=== PATIENT | male | born 1945 | race Caucasian/White ===

== ENCOUNTER 2024-09-27 11:10 | Outpatient (AMB) | payer MEDICARE, BC, SELFPAY ==
--- NOTE | 2024-09-27 11:21 | ORTHONT_ITS ---
Vital signs 09/27/24 11:22 Height 1.8 m Height Method Stated Weight 97.749 kg Weight Measurement Method Standing Scale BMI 30.2 BP 117/72 Blood Pressure Source Automatic Cuff Blood Pressure Location Right Upper Arm Position Sitting Respiration 18 Pulse 59 L Pulse Source Monitor Temp 97.2 F Temp Source Temporal Artery Scan Pulse Oximetry (%) 95 Oxygen Delivery Method Room Air Med/Allergies Allergies & Medications Allergies No Known Allergies Allergy (Verified 09/27/24 11:23) Medication Reconciliation ropinirole 4 mg tablet,extended release 24 hr 4 mg PO QDAY 02/17/23 [History Confirmed 09/27/24] aspirin 81 mg tablet,delayed release 81 mg PO QDAY 09/27/24 [History Confirmed 09/27/24] clopidogrel 75 mg tablet 75 mg PO QDAY 09/27/24 [History Confirmed 09/27/24] metoprolol tartrate 37.5 mg tablet 37.5 mg PO QDAY 09/27/24 [History Confirmed 09/27/24] Exam Exam Patient is in no acute distress and is cooperative with the examination today. Breathing is nonlabored. Patient has a normal mood and affect. Bilateral extremities were evaluated and demonstrates sensation intact to light touch. Palpable pedal pulses are present. No significant edema is present. Bilateral hips were examined. The patient has no pain with log roll of the hips. Internal rotation to 30 degrees and external rotation to 30 degrees is painless. Negative FADIR. Left knee was examined today. The left knee is in reasonable alignment. Range of motion from 0-120 degrees. Knee is stable to varus and valgus as well as AP translation with <5mm. Patient has a negative McMurrays. There is no pain with patellofemoral compression and no crepitus noted. The knee is nontender to palpation. The right knee was also examined. The right knee is in [varus] alignment. Range of motion from [0-115] degrees. Knee is stable to varus and valgus as well as AP translation with <5mm. Patient has a [negative] McMurrays. There is [no] pain with patellofemoral compression and [no] crepitus noted. The knee is [tender] to palpation [medially]. I reviewed an MRI which demonstrates a posterior horn medial meniscus tear. It also appears to be cartilage loss. X-rays demonstrate severe joint space narrowing medially with complete obliteration of the medial and lateral joint space on both the right and left knee Assessment and Plan Problem List (1) Osteoarthritis of right knee: Status: Acute Plan: Patient is a 79-year-old male with significant right knee arthritis. Discussed nonoperative and operative options. We discussed total knee replacement is a reasonable option as he is failed conservative management. We discussed that he is at high risk for medical complications because of his heart history. He would like to proceed. The nature and purpose of the total knee replacement, alternative method(s) of treatment, the material risks involved, and the possibility of complications were fully explained to the patient. The patient does NOT have any of the following contraindications to TKA: - Active infection of the knee joint, OR - Active systemic bacteremia, OR - Active skin infection or open wound at surgical site, OR - Neuropathic arthritis, OR - Severe, rapidly progressive neurological disease, OR - Severe medical condition that makes risks of surgery outweigh the potential benefit The patient was told the most common risks and complications associated with a total knee replacement include, but are not limited to: blood clots in the leg, fatal pulmonary embolism, dislocation of the prosthesis, intraoperative and postoperative fractures of the femur or tibia, infection, failure of the prosthesis or grafting materials, complications from anesthesia, reactions to blood transfusions, postoperative leg length inequality, instability of the knee replacement, nerve damage or injury, vascular injury, delayed wound healing, infection, other injury or even . In addition, there are risks associated with anesthesia given during this operation. Also, the patient was told that after undergoing a total knee replacement there may still be persistent pain or disability. The patient was informed that the success of this operation in part depends upon the mechanical devices which are going to be implanted and that these devices can fail or malfunction, and may need to be repaired or replaced and there are no guarantees as to the longevity of this device or its parts and that it or its parts could fail prematurely. The patient was also notified that during the course of surgery, there may be a need to use bone graft from donors, and that any bone graft used will be carefully screened for communicable diseases, including AIDS, hepatitis, Jose Carlos-Creutzfeldt, or other diseases, but despite the screening procedures, there is a small chance that they could contract one of these diseases. Finally, the patient was asked to follow completely and fully with all advice and recommended treatments, and that recovery and ultimate outcome are affected by their compliance with recommended treatment. We discussed the risks, benefits and treatment alternatives, and the patient is interested in proceeding with surgery. We will try to set this up as expeditiously as possible. Advanced Care Planning Discussion Advance care planning discussed with:: patient Office Procedures GNS Level of Care Nursing/Assessment Patient Status: Established Patient Nursing Assessment/Reassesment: Medication Reconciliation, Update PMH in EMR and Vital Signs Coordination of Care: Complex Care and Chronic Disease 1-5, Education Complex Pt/Fam, Consent,records obtained, informed consent, 2-3 Insurance Autorizations needed, Results/Orders obtained and Staff clarify orders Established Patient Charge Established Patient Point Assignment: 115 Established Patient Point Charge: EP Level 3 (80-115) MA Intake Visit Data Collection New Patient or Established: Established Patient (seen at [facility] within 3 years) Reason for Visit:: F/U CARDIAC CLEARANCE Seen by Clinical Staff ONLY (RN/MA): No Verbal consent obtained for Telemed visit?: No Screw Machine Adjuster Automatic Required: No PCP or OBGYN visit in last 3 months: Yes Hx Now: No Do You Feel Safe at Home: Yes Authorities Contacted: N/A Questionairres Past Medical History Past Medical History Have you ever been diagnosed with any of the following: Neurological Problems Seizures: No Cardiology Problems Heart Murmur: Yes Congestive Heart Failure: No Valvular Heart Disease: No Respiratory Problems Chronic Obstructive Pulmonary Disease (COPD): Yes (mild) Asthma: Yes Sleep Apnea: Yes Smoking: No Smoking Exposure: No Stomache/Intestinal Problems Hepatitis: No Obesity: Yes Genital/Urinary Problems Renal Disease: No Kidney Stones: Yes Musculoskeletal Problems Arthritis: Yes Osteoporosis: Yes Head,Eye,Nose,Throat Problems Cataracts: Yes (BILATERAL) Deafness: Yes Endocrine Problems Diabetes Mellitus Type 1: No Diabetes Mellitus Type 2: No Psychologic Problems Depression: Yes Anxiety: Yes Other Problems Hospitalization: Yes (yrs ago for kidney stones) Shingles: No Blood Transfusions: No Blood Transfusion Reaction: No (NA) Anesthesia Reactions: No MRSA: No Human Immunodeficiency Virus (HIV): No Chicken Pox: Yes Measles: Yes Mumps: Yes Rubella (K[place]akh Measles): No Pertussis: No Clostridium Difficile: No Cancer: No Subjective Visit Visit for: follow up visit and knee Immunization / Flu Flu Vaccine in the Last 12 Months: No Flu Vaccine Exclusion Criteria: No Exclusion Criteria History of Present Illness Chief complaint: F/U CARDIAC CLEARANCE John is a pleasant 79-year-old male with severe right knee arthritis. His failed conservative treatment including injections and anti-inflammatories. He had a recent valve replacement. He obtained his cardiac clearance recently. He is on aspirin and Plavix. Personal History Occupation: RETIRED [employer] PMH: Blood thinners and BMI BMI Counceling provided: Yes Pain Pain level (0-10): 6 Pain location: inside (medial), outside (lateral), anterior and posterior Pain quality: sharp, dull and aching Pain timing: increases with activity Ambulatory data Ambulatory device: cane Treatments Improvement with previous injections: No Improvement with PT: No Improvement with NSAIDS: no Review of Systems Review of Systems: All systems negative unless otherwise noted in HPI.
[2024-09-27 11:22] VITALS: BP 117/72; PULSE 59; RESP 18; TEMP 36.2; O2SAT 95; BMI 30.2
== END 2024-09-27 11:48 | disposition home or self-care (01) ==
LOC: HODSRG 11:10
PROVIDERS: PCP Internal Medicine; Referring Provider Internal Medicine; Supervising Provider Orthopaedic Surgery Adult Reconstructive Orthopaedic Surgery; Visit Provider Orthopaedic Surgery Adult Reconstructive Orthopaedic Surgery
DX: M17.11 Unilateral primary osteoarthritis, right knee (principal); G47.30 Sleep apnea, unspecified
CPT/HCPCS: 99213; G0463

== ENCOUNTER → 2024-10-06 | Outpatient (CLI) | payer MEDICARE, BC, SELFPAY ==
--- NOTE | 2024-10-06 | XR_ITS ---
Examination: PA lateral chest 2 views Technique: Upright PA lateral chest 2 views Exam date and time: October 06, 2024, 1211 hrs. Comparison 05/28/2021 Indications: Coughing congestion beginning 3 months ago. Findings: Aortic valve replacement Mild accentuation basilar bronchovascular markings No pulmonary edema Normal heart size Impression: Mild basilar bronchitis pattern
== END | disposition home or self-care (01) ==
LOC: CDIM 11:42
PROVIDERS: PCP Internal Medicine
DX: R05.3 Chronic cough (principal)
CPT/HCPCS: 71046

== ENCOUNTER → 2024-10-19 | Outpatient (CLI) | payer MEDICARE, BC, SELFPAY ==
--- NOTE | 2024-10-19 16:30 | XR_ITS ---
Examination: CT right lower extremity, without contrast. 2-D sagittal reconstructions. 2-D coronal reconstructions. 3-D reconstructions. Date and time of exam:October 19, 2024 1630 hours INDICATIONS: Diagnosis unilateral right knee osteoarthritis right knee pain one year CTDI: vol (mGy):12.6 DLP: (mGycm):835 Technique: Multiple 1.25 mm axial sections of the right lower extremity without intravenous contrast have been obtained. 2-D sagittal and coronal reconstructions have been obtained. 3-D reconstructions have been obtained. Low dose protocols were performed. One or more of the following dose reduction techniques were used; automated exposure control, adjustment of the mA and/or KV according to patient size, use of iterative reconstruction technique. Findings: Severe osteopenia Mild narrowing right hip joint No right hip fracture or dislocation No avascular necrosis Severe narrowing medial joint space right knee Significant osteoarthritis lateral right patellofemoral joint No fractures No avascular necrosis Faint meniscus calcification IMPRESSION: Severe narrowing medial joint space right knee Significant osteoarthritis lateral right patellofemoral joint
== END | disposition home or self-care (01) ==
LOC: CCTX 16:19
PROVIDERS: PCP Internal Medicine; Referring Provider Orthopaedic Surgery Adult Reconstructive Orthopaedic Surgery; Visit Provider Orthopaedic Surgery Adult Reconstructive Orthopaedic Surgery
DX: M17.11 Unilateral primary osteoarthritis, right knee (principal); M25.861 Other specified joint disorders, right knee
CPT/HCPCS: 73700

== ENCOUNTER 2024-10-27 12:59 | Outpatient (AMB) | payer MEDICARE, BC, SELFPAY ==
[2024-10-27 13:12] VITALS: BP 116/70; PULSE 72; RESP 18; TEMP 36.5; O2SAT 95; BMI 30.1
--- NOTE | 2024-10-27 13:12 | PD.ORTHCLVIS ---
Vital signs 10/27/24 13:12 Height 1.8 m Height Method Stated Weight 97.636 kg Weight Measurement Method Standing Scale BMI 30.1 BP 116/70 Blood Pressure Source Automatic Cuff Blood Pressure Location Right Upper Arm Position Sitting Respiration 18 Pulse 72 Pulse Source Monitor Temp 97.7 F Temp Source Temporal Artery Scan Pulse Oximetry (%) 95 Oxygen Delivery Method Room Air Med/Allergies Allergies & Medications Allergies No Known Allergies Allergy (Verified 10/27/24 13:15) Medication Reconciliation ropinirole 4 mg tablet,extended release 24 hr 4 mg PO QDAY 02/17/23 [History Confirmed 10/27/24] aspirin 81 mg tablet,delayed release 81 mg PO QDAY 09/27/24 [History Confirmed 10/27/24] clopidogrel 75 mg tablet 75 mg PO QDAY 09/27/24 [History Confirmed 10/27/24] metoprolol tartrate 37.5 mg tablet 37.5 mg PO QDAY 09/27/24 [History Confirmed 10/27/24] Exam Exam Patient is in no acute distress and is cooperative with the examination today. Breathing is nonlabored. Patient has a normal mood and affect. Bilateral extremities were evaluated and demonstrates sensation intact to light touch. Palpable pedal pulses are present. No significant edema is present. Bilateral hips were examined. The patient has no pain with log roll of the hips. Internal rotation to 30 degrees and external rotation to 30 degrees is painless. Negative FADIR. Left knee was examined today. The left knee is in reasonable alignment. Range of motion from 0-120 degrees. Knee is stable to varus and valgus as well as AP translation with <5mm. Patient has a negative McMurrays. There is no pain with patellofemoral compression and no crepitus noted. The knee is nontender to palpation. The right knee was also examined. The right knee is in [varus] alignment. Range of motion from [0-115] degrees. Knee is stable to varus and valgus as well as AP translation with <5mm. Patient has a [negative] McMurrays. There is [no] pain with patellofemoral compression and [no] crepitus noted. The knee is [tender] to palpation [medially]. I reviewed an MRI which demonstrates a posterior horn medial meniscus tear. It also appears to be cartilage loss. X-rays demonstrate severe joint space narrowing medially with complete obliteration of the medial and lateral joint space on both the right and left knee Assessment and Plan Problem List (1) Osteoarthritis of right knee: Status: Acute Plan: Patient is a 79-year-old male with significant right knee arthritis. Discussed nonoperative and operative options. We discussed total knee replacement is a reasonable option as he is failed conservative management. We discussed that he is at high risk for medical complications because of his heart history. He would like to proceed. The nature and purpose of the total knee replacement, alternative method(s) of treatment, the material risks involved, and the possibility of complications were fully explained to the patient. The patient does NOT have any of the following contraindications to TKA: - Active infection of the knee joint, OR - Active systemic bacteremia, OR - Active skin infection or open wound at surgical site, OR - Neuropathic arthritis, OR - Severe, rapidly progressive neurological disease, OR - Severe medical condition that makes risks of surgery outweigh the potential benefit The patient was told the most common risks and complications associated with a total knee replacement include, but are not limited to: blood clots in the leg, fatal pulmonary embolism, dislocation of the prosthesis, intraoperative and postoperative fractures of the femur or tibia, infection, failure of the prosthesis or grafting materials, complications from anesthesia, reactions to blood transfusions, postoperative leg length inequality, instability of the knee replacement, nerve damage or injury, vascular injury, delayed wound healing, infection, other injury or even . In addition, there are risks associated with anesthesia given during this operation. Also, the patient was told that after undergoing a total knee replacement there may still be persistent pain or disability. The patient was informed that the success of this operation in part depends upon the mechanical devices which are going to be implanted and that these devices can fail or malfunction, and may need to be repaired or replaced and there are no guarantees as to the longevity of this device or its parts and that it or its parts could fail prematurely. The patient was also notified that during the course of surgery, there may be a need to use bone graft from donors, and that any bone graft used will be carefully screened for communicable diseases, including AIDS, hepatitis, Jose Carlos-Creutzfeldt, or other diseases, but despite the screening procedures, there is a small chance that they could contract one of these diseases. Finally, the patient was asked to follow completely and fully with all advice and recommended treatments, and that recovery and ultimate outcome are affected by their compliance with recommended treatment. We discussed the risks, benefits and treatment alternatives, and the patient is interested in proceeding with surgery. We will try to set this up as expeditiously as possible. Advanced Care Planning Discussion Advance care planning discussed with:: patient Office Procedures GNS Level of Care Nursing/Assessment Patient Status: Established Patient Nursing Assessment/Reassesment: Medication Reconciliation, Update PMH in EMR and Vital Signs Coordination of Care: Complex Care and Chronic Disease 1-5, Education Complex Pt/Fam, Consent,records obtained, informed consent, Lab and Imaging orders, Results/Orders obtained and Staff clarify orders Established Patient Charge Established Patient Point Assignment: 110 Established Patient Point Charge: EP Level 3 (80-115) MA Intake Visit Data Collection New Patient or Established: Established Patient (seen at [facility] within 3 years) Reason for Visit:: pre-op right tka Seen by Clinical Staff ONLY (RN/MA): No Verbal consent obtained for Telemed visit?: No Insurance Verification Clerk Required: No PCP or OBGYN visit in last 3 months: Yes Hx Now: No Do You Feel Safe at Home: Yes Authorities Contacted: N/A Questionairres Past Medical History Past Medical History Have you ever been diagnosed with any of the following: Neurological Problems Seizures: No Cardiology Problems Heart Murmur: Yes Congestive Heart Failure: No Valvular Heart Disease: No Respiratory Problems Chronic Obstructive Pulmonary Disease (COPD): Yes (mild) Asthma: Yes Sleep Apnea: Yes Smoking: No Smoking Exposure: No Stomache/Intestinal Problems Hepatitis: No Obesity: Yes Genital/Urinary Problems Renal Disease: No Kidney Stones: Yes Musculoskeletal Problems Arthritis: Yes Osteoporosis: Yes Head,Eye,Nose,Throat Problems Cataracts: Yes (BILATERAL) Deafness: Yes Endocrine Problems Diabetes Mellitus Type 1: No Diabetes Mellitus Type 2: No Psychologic Problems Depression: Yes Anxiety: Yes Other Problems Hospitalization: Yes (yrs ago for kidney stones) Shingles: No Blood Transfusions: No Blood Transfusion Reaction: No (NA) Anesthesia Reactions: No MRSA: No Human Immunodeficiency Virus (HIV): No Chicken Pox: Yes Measles: Yes Mumps: Yes Rubella ([place] Measles): No Pertussis: No Clostridium Difficile: No Cancer: No Subjective Visit Visit for: follow up visit Immunization / Flu Flu Vaccine in the Last 12 Months: No Flu Vaccine Exclusion Criteria: No Exclusion Criteria History of Present Illness Chief complaint: pre-op tka John is a pleasant 79-year-old male with severe right knee arthritis. His failed conservative treatment including injections and anti-inflammatories. He had a recent valve replacement. He obtained his cardiac clearance recently. He has discontinued his aspirin and plavix Personal History Occupation: retired [employer] PMH: BMI BMI Counceling provided: Yes Pain Pain level (0-10): 6 Pain duration: all day Pain location: inside (medial), outside (lateral), anterior and posterior Pain quality: sharp, dull and aching Pain timing: increases with activity Ambulatory data Ambulatory device: cane Treatments Improvement with previous injections: No Improvement with PT: No Improvement with NSAIDS: no Review of Systems Review of Systems: All systems negative unless otherwise noted in HPI.
== END 2024-10-27 13:30 | disposition home or self-care (01) ==
LOC: HODSRG 12:59
PROVIDERS: PCP Internal Medicine; Referring Provider Internal Medicine; Supervising Provider Orthopaedic Surgery Adult Reconstructive Orthopaedic Surgery; Visit Provider Orthopaedic Surgery Adult Reconstructive Orthopaedic Surgery
DX: M17.11 Unilateral primary osteoarthritis, right knee (principal); J44.9 Chronic obstructive pulmonary disease, unspecified; G47.30 Sleep apnea, unspecified
CPT/HCPCS: 99213; G0463

== ENCOUNTER 2024-11-07 06:45 | Day surgery (SDC) | payer MEDICARE, BC, SELFPAY ==
--- NOTE | 2024-11-04 06:30 | EKG_ITS ---
[facility] Test Date: 2024-11-04 Pat Name: KALA WALKER Department: Room: - Gender: Male Assistant Administrator: JONATHAN : 1945 Requested By: Jhonny Anderson Order Number: [id number] Reading MD: Jhonny Anderson Measurements Intervals [place] Rate: 58 P: 60 NE: 181 QRS: 18 QRSD: 89 T: 63 QT: 390 QTc: 384 Interpretive Statements SINUS BRADYCARDIA NONSPECIFIC T-WAVE ABNORMALITY No previous ECG available for comparison /[id number]/[email or web address]/[id number].pdf
[2024-11-04 07:13] VITALS: BMI 29.7
[2024-11-04 07:35] VITALS: BMI 29.7
[2024-11-04 08:54] LABS: Basophils # (Auto) 0.1 Thou/mm3 (0.0-0.2); Basophils % (Auto) 1 % (0-2.5); Eosinophils # (Auto) 0.2 Thou/mm3 (0.0-0.5); Eosinophils % (Auto) 4 % (0-10); Hematocrit 43.9 % (41.0-53.0); Immature Granulocytes % (Auto) 0 % (0-0); Immature Granulocytes Auto 0.02 Thou/mm3 (0.00-0.00); Lymphocytes # (Auto) 1.5 Thou/mm3 (1.0-4.8); Lymphocytes % (Auto) 27 % (10-50); Mean Corpuscular HGB Conc 34.2 g/dl (31.0-37.0); Mean Corpuscular Hemoglobin 30.9 pg (25.0-35.0); Mean Corpuscular Volume 90 fL (80-100); Monocytes # (Auto) 0.7 Thou/mm3 (0.0-0.8); Monocytes % (Auto) 13 % (0-12); Neutrophils # (Auto) 3.2 Thou/mm3 (1.8-7.7); Neutrophils % (Auto) 56 % (37-80); Nucleated Red Blood Cell % 0 /100 WBC (0); Platelet Count 168 Thou/mm3 (140-440); RDW Standard Deviation 46.5 fL (35.1-43.9); Red Blood Count 4.86 Miln/mm3 (4.50-5.90); White Blood Count 5.8 Thou/mm3 (3.8-10.6)
[2024-11-04 09:03] LABS: Prothrombin Time 10.9 Seconds (9.0-12.2)
[2024-11-04 09:25] LABS: Alanine Aminotransferase 10 U/L (10-49); Albumin, Serum 4.3 gm/dL (3.4-4.8); Albumin/Globulin Ratio 1.5 (1.2-2.2); Alkaline Phosphatase 116 U/L (46-116); Anion Gap 6 (7-16); Aspartate Amino Transferase 16 U/L (0-34); BUN/Creatinine Ratio 15 Ratio (12-20); Bilirubin,Total 0.6 mg/dL (0.3-1.2); Blood Urea Nitrogen 17 mg/dL (9-23); Carbon Dioxide 27.7 mMol/L (20.0-31.0); Chloride 108 mMol/L (98-107); Creatinine (Component) 1.1 mg/dL (0.6-1.3); Estimated Creatinine Clearance 63.5 mL/min (>60); Globulin 2.9 gm/dL (2.3-3.5); Glucose 86 mg/dL (74-106); Osmolality,Calculated 283 (275-295); Potassium 3.7 mMol/L (3.4-5.1); Sodium 142 mMol/L (136-145); Total Protein 7.2 gm/dL (5.7-8.2); eGFR > 60 See Note
--- NOTE | 2024-11-04 14:45 | SUR.PREOP ---
Cardiac records reviewed with Dr Anderson.
[2024-11-07] VITALS (15 sets, daily range): BP systolic 103–148; BP diastolic 59–89; PULSE 60–76; RESP 11–18; TEMP 36.1–36.8; O2SAT 91–97; BMI 29.5
[2024-11-07] MEDS: MELOXICAM 7.5 MG TABLET PO (08:53)
[2024-11-07] MEDS: ACETAMINOPHEN 325 MG TABLET 650 MG PO (08:53)
[2024-11-07] MEDS: PREGABALIN 75 MG CAPSULE PO (08:53)
[2024-11-07] MEDS: RINGERS LACTATED 1000 ML 1,000 ML 20 ML IV (08:56)
--- NOTE | 2024-11-07 11:12 | ESOP_ITS ---
Date of Procedure 11/07/24 Pre Op Diagnosis right knee osteoarthritis Post Op Diagnosis right knee osteoarthritis Procedure right totoal knee replacement Findings full thickness cartilage loss and osteophytes Procedure Description Indication: The patient is a 79 year old who has a long history of right knee pain. X-rays show degenerative arthritis involving the knee. Over the past several years the patient has had increasing pain, progressive limitation in function. He has failed conservative measures including activity modification, physical therapy, injections, anti-inflammatories, and assistive devices. After a lengthy discussion of the risks and benefits, the patient presents now for total knee replacement. The nature and purpose of the total knee replacement, alternative method(s) of treatment, the material risks involved, and the possibility of complications were fully explained to the patient. The patient was told the most common risks and complications associated with a total knee replacement include, but are not limited to blood clots in the leg, fatal pulmonary embolism, dislocation of the prosthesis, intraoperative and postoperative fractures of the femur or tibia, infection, failure of the prosthesis or grafting materials, complications from anesthesia, reactions to blood transfusions, postoperative leg length inequality, instability of the knee replacement, nerve damage or injury, vascular injury, delayed wound healing, infections, other injury or even . In addition, there are risks associated with anesthesia given during this operation, temporary or permanent numbness on the skin lateral to the incision can be a complication unique to total knee surgery, and kneeling can be painful after knee replacement surgery. Also, the patient was told that after undergoing a total knee replacement there may still be pain or disability. We discussed with the patient that we will be using a robot-assisted technology. We discussed that there is a possibility of converting to manual instrumentation. The patient was informed that the success of this operation in part depends upon the mechanical devices which are going to be implanted and that these devices can fail or malfunction, and may need to be repaired or replaced and there are no guarantees as to the longevity of this device or its part and that it or its parts could fail prematurely. Finally, the patient was asked to follow completely and fully with all advice and recommended treatments, and that recovery and ultimate outcome are affected by their compliance with recommended treatment. Surgical technique: Patient was marked and consented in the pre-operative area. The patient was brought to the operating room and placed on the operating table in a supine position. Prior to positioning, a timeout procedure was performed between the surgeon, the anesthesiologist, and the nursing staff where the patient and the operative side were identified and confirmed. After adequate general anesthetic was obtained, the right lower extremity was prepped and draped in the usual sterile fashion. A weight based dose of Cefazolin were administered within 1 hour prior to incision. The robot was preregistered and calirated before the incision. The extremity was exsanguinated with an esmarch badge and tourniquet inflated to 250mmHg. A midline incision was made. A median parapatellar arthrotomy was made. The patella was subluxed laterally. A medial release was performed to expose the medial tibia. His femoral and tibial pins were placed through an intra incisional manner for both cases. Every effort was made to ensure that the distalmost aspect of the pin was hung in the second cortex. The arrays were then tightened several times to ensure that it was fixed for the remainder of the case. Both femoral and tibial checkpoints were then placed. We then went through the registration process of the bone. We then assessed the knee deformity and attempted to correct it. We also used the robot to aid in judging laxity in both extension and flexion. Final based on laxity and alignment we changed the preoperative assessment to obtain proper proper implant positioning and to correct deformity. Attention was then placed to the tibia. We made a tibial cut using the robot ensuring that both the MCL and the patella tendon were protected with retractors. We then went to the femur and made the posterior cut followed by the anterior cut and the anterior chamfer. The bone was then removed and we made a distal femur cut and a posterior chamfer cut. We verified all cuts. A trial reduction was performed with a size 6 femoral component and a size 6 keeled tibial component. The patella tracked centrally, and no lateral retinacular release was necessary. The trial implants were removed. The arrays, pins, and checkpoints were all removed. We performed a verification that all pins were removed. The cut bone surfaces were lavaged. A size 6 right femoral component, a size 6 keeled tibial component were impacted into position. The knee was felt to be well balanced in the sagittal and coronal plane. The final 6x10 mm cruciate- substituting articular insert was impacted into the tibial tray. The knee was brought out to full extension, flexed up to 120 degrees. It was stable to varus and valgus stress and appropriately balanced in flexion and extension. The wounds were copiously irrigated following deflation of tourniquet. The medial retinaculum was reapproximated with #1 vicryl and quill. The subcutaneous tissues were closed with 0 and 2-0 interrupted Vicryl. The skin was closed with 3-0 Monofilament V loc suture. A sterile dressing was applied. The patient was transferred to a bed and brought to recovery in stable condition. The patient tolerated the procedure well. There were no intraoperative complications. Sponge and needle counts were correct times 2. As the attending surgeon, Preston bradley I was present and performed the entire operation. Grafts/Implants Size 6 CR Femur Size 6 Tibia 10mm poly CS Anesthesia spinal Implants yovani Pathology / specimen None Pathology comment: none Estimated Blood Loss 150 Condition Stable Disposition same day Surgeon Dalton Mares MD Surgical Staff Operation Date: 11/07/24 11:00 Case Staff Anesthesiologist: Miles Hurtado RN First Assistant: Ese Mauricio
--- NOTE | 2024-11-07 11:14 | XR_ITS ---
Examination: Right knee 2 views Technique one AP lateral right knee portable 2 views Date and time: November 07, 2024 1228 hours INDICATIONS: Postop knee replacement today. FINDINGS: Total right knee arthroplasty. Satisfactory alignment No fracture IMPRESSION: Total right knee replacement with satisfactory alignment
[2024-11-07] MEDS: HYDROmorphone INJ 2 MG/ML VIAL 0.4 MG IVP ×2 (11:53→12:10)
--- NOTE | 2024-11-07 11:57 | SUR.PHASEI ---
1125: Pt received in [facility]. Received report from Mary NEWMAN and John RUSHING. Pt obtunded. Resp even, unlabored. VS stable. Dressing to right knee dry, clean, intact. Pedal pulse strong, regular. 1153: Pt awake with c/o pain to right knee. Rates pain level 10/10. Resp even, unlabored. VS stable. Dressing remains dry, clean, intact. Pain medication given per order.
[2024-11-07] MEDS: fentaNYL CIT INJ 50 mCg/ML AMP 2ML 25 MCG IVP (12:41)
--- NOTE | 2024-11-07 17:51 | SUR.PHASEII ---
1210: Pt continues to c/o pain to right knee. Rates pain level 10/10. Resp even, unlabored. VS stable. Pt provided pain medication. 1240: Pt has been resting with no complaints. Awaken at this time and has c/o pain to right knee. Rates pain level 6/10. Pain medication given per order. 1315: Pt very groggy. Has been sleeping. Awakened at this time. States pain level coming down is becoming tolerable. 1330: Pt sitting up tolerating ice chips. VS stable. Dressing remains dry, clean, intact. 1350: Physical Therapy here to assess pt. 1410: Physical Therapy stated pt stable and could be discharged home. Pt and daughter stated understanding of discharge instructions. Pt also instructed to merchandise pickup/receiving associate his prescriptions at his pharmacy. Pt discharged from [facility] in stable condition.
== END 2024-11-07 14:10 | disposition home or self-care (01) ==
PROVIDERS: Anesthesiology; PCP Internal Medicine; Referring Provider Orthopaedic Surgery Adult Reconstructive Orthopaedic Surgery; Visit Provider Orthopaedic Surgery Adult Reconstructive Orthopaedic Surgery
PROC: (CPT 27447; principal; 2024-11-07 10:45)
DX: M17.11 Unilateral primary osteoarthritis, right knee (principal); M25.761 Osteophyte, right knee; Z01.810 Encounter for preprocedural cardiovascular examination
CPT/HCPCS: 27447; 20985; 36415; 73560; 80053; 85025; 85610; 85730; 93005; 97162; A4217; C1713; C1776; J0690; J1171; J2250; J2371; J2704; J2795; J3010; J3490; J7030; J7120; J7999; A4648; A4649; A9270

== ENCOUNTER 2024-11-25 09:03 | Outpatient (AMB) | payer MEDICARE, BC, SELFPAY ==
[2024-11-25 09:12] VITALS: BP 143/72; PULSE 78; RESP 18; TEMP 35.8; O2SAT 96
--- NOTE | 2024-11-25 09:12 | ORTHONT_ITS ---
Vital signs 11/25/24 09:12 Weight 98.94 kg Weight Measurement Method Standing Scale BP 143/72 H Blood Pressure Source Automatic Cuff Blood Pressure Location Right Upper Arm Position Sitting Respiration 18 Pulse 78 Pulse Source Monitor Temp 96.5 F L Temp Source Temporal Artery Scan Pulse Oximetry (%) 96 Oxygen Delivery Method Room Air Med/Allergies Allergies & Medications Allergies No Known Allergies Allergy (Verified 11/25/24 09:13) Medication Reconciliation ropinirole 4 mg tablet,extended release 24 hr 4 mg PO QDAY 02/17/23 [History Confirmed 11/25/24] cetirizine 10 mg tablet (24Hour Allergy) 10 mg PO QDAY PRN allergy symptoms 11/04/24 [History Confirmed 11/25/24] metoprolol tartrate 50 mg tablet 25 mg PO QDAY 11/04/24 [History Confirmed 11/25/24] acetaminophen 500 mg tablet (Acetaminophen Extra Strength) 1,000 mg (2 x 500 mg) PO Q6H PRN pain #90 tabs 11/07/24 [Rx Confirmed 11/25/24] aspirin 81 mg tablet,delayed release 81 mg PO BID #60 tabs 11/07/24 [Rx Confirmed 11/25/24] doxycycline hyclate 100 mg tablet 100 mg PO BID #14 tabs 11/07/24 [Rx Confirmed 11/25/24] gabapentin 300 mg capsule 300 mg PO .qhs #30 caps 11/07/24 [Rx Confirmed 11/25/24] meloxicam 7.5 mg tablet 7.5 mg PO QDAY #30 tabs 11/07/24 [Rx Confirmed 11/25/24] oxycodone 5 mg tablet 5 mg PO Q6H PRN pain #28 tabs 11/07/24 [Rx Confirmed 11/25/24] sennosides 8.6 mg-docusate sodium 50 mg tablet (Senna-S) 1 tab-cap PO QDAY #30 tabs 11/07/24 [Rx Confirmed 11/25/24] cyclobenzaprine 5 mg tablet 5 mg PO TID PRN muscle spasm #60 tabs 11/14/24 [Rx Confirmed 11/25/24] naproxen 500 mg tablet 500 mg PO BID PRN pain #60 tabs 11/14/24 [Rx Confirmed 11/25/24] oxycodone 5 mg tablet 5 mg PO Q6H PRN pain #28 tabs 11/14/24 [Rx Confirmed 11/25/24] Exam Exam Patient is in no acute distress and is cooperative with the examination today. Breathing is nonlabored. Patient has a normal mood and affect. Bilateral extremities were evaluated and demonstrates sensation intact to light touch. Palpable pedal pulses are present. No significant edema is present. Bilateral hips were examined. The patient has no pain with log roll of the hips. Internal rotation to 30 degrees and external rotation to 30 degrees is painless. Negative FADIR. Left knee was examined today. The left knee is in reasonable alignment. Range of motion from 0-120 degrees. Knee is stable to varus and valgus as well as AP translation with <5mm. Patient has a negative McMurrays. There is no pain with patellofemoral compression and no crepitus noted. The knee is nontender to palpation. Right knee incision is clean dry and intact Assessment and Plan Problem List (1) Osteoarthritis of right knee: Status: Acute Plan: Patient is a 79-year-old male with significant right knee arthritis Status post right total knee replacement. He is doing well. Will transition to outpatient physical therapy. We discussed that he should be taking his aspirin Advanced Care Planning Discussion Advance care planning discussed with:: patient Office Procedures GNS Level of Care Nursing/Assessment Patient Status: Established Patient Nursing Assessment/Reassesment: Medication Reconciliation, Update PMH in EMR and Vital Signs Coordination of Care: Complex Care and Chronic Disease 1-5, Education Complex Pt/Fam, Consent,records obtained, informed consent, Results/Orders obtained and Staff clarify orders Established Patient Charge Established Patient Point Assignment: 95 Established Patient Point Charge: EP Level 3 (80-115) MA Intake Visit Data Collection New Patient or Established: Established Patient (seen at [facility] within 3 years) Reason for Visit:: 3 WEEK POST OP RT TKA Seen by Clinical Staff ONLY (RN/MA): No Administrative Services Director Required: No PCP or OBGYN visit in last 3 months: Yes Hx Now: No Do You Feel Safe at Home: Yes Authorities Contacted: N/A Questionairres Past Medical History Past Medical History Have you ever been diagnosed with any of the following: Neurological Problems Seizures: No Cardiology Problems Heart Murmur: Yes Congestive Heart Failure: No Valvular Heart Disease: No Respiratory Problems Chronic Obstructive Pulmonary Disease (COPD): Yes (mild) Asthma: Yes Sleep Apnea: Yes Smoking: No Smoking Exposure: No Stomache/Intestinal Problems Hepatitis: No Obesity: Yes Genital/Urinary Problems Renal Disease: No Kidney Stones: Yes Musculoskeletal Problems Arthritis: Yes Osteoporosis: Yes Head,Eye,Nose,Throat Problems Cataracts: Yes (BILATERAL) Deafness: Yes Endocrine Problems Diabetes Mellitus Type 1: No Diabetes Mellitus Type 2: No Psychologic Problems Depression: Yes Anxiety: Yes Other Problems Hospitalization: Yes (yrs ago for kidney stones) Shingles: No Blood Transfusions: No Blood Transfusion Reaction: No Anesthesia Reactions: No MRSA: No Human Immunodeficiency Virus (HIV): No Chicken Pox: Yes Measles: Yes Mumps: Yes Rubella ([place] Measles): No Pertussis: No Clostridium Difficile: No Cancer: No Surgical History Valve Replacement: Yes (TAVR) Subjective Visit Visit for: post op #2 (RT TKA ) Immunization / Flu Flu Vaccine in the Last 12 Months: Yes Flu Vaccine Exclusion Criteria: Already Received History of Present Illness Chief complaint: pre-op tka John is a pleasant 79-year-old male with severe right knee arthritis. He has done well status post right total knee replacement. He is using just a cane Personal History Occupation: retired Red flag PMH: none BMI Counceling provided: Yes Pain Pain level (0-10): 2 Pain duration: 3 WEEKS Pain location: anterior Pain quality: sharp, aching and electric Pain timing: increases with activity (WHILE WALKING ) Associated signs & symptoms: stiffness Ambulatory data Ambulatory device: cane Walking distance (minutes): 1 Treatments Number of previous injections: 0 Improvement with previous injections: No Number of Physical Therapy sessions: 0 Improvement with PT: No Improvement with NSAIDS: n/a Review of Systems Review of Systems: All systems negative unless otherwise noted in HPI.
== END 2024-11-25 09:27 | disposition home or self-care (01) ==
LOC: HODSRG 09:03
PROVIDERS: PCP Internal Medicine; Referring Provider Internal Medicine; Supervising Provider Orthopaedic Surgery Adult Reconstructive Orthopaedic Surgery; Visit Provider Orthopaedic Surgery Adult Reconstructive Orthopaedic Surgery
DX: M17.11 Unilateral primary osteoarthritis, right knee (principal); Z96.651 Presence of right artificial knee joint; J44.9 Chronic obstructive pulmonary disease, unspecified; G47.30 Sleep apnea, unspecified
CPT/HCPCS: 99213; G0463

== ENCOUNTER 2024-12-20 10:48 | Outpatient (AMB) | payer MEDICARE, BC, SELFPAY ==
--- NOTE | 2024-12-20 11:25 | PD.ORTHCLVIS ---
Vital signs 12/20/24 11:26 Height 1.8 m Height Method Stated Weight 100.442 kg Weight Measurement Method Standing Scale BMI 30.9 BP 119/71 Blood Pressure Source Automatic Cuff Blood Pressure Location Right Upper Arm Position Sitting Respiration 19 Pulse 76 Med/Allergies Allergies & Medications Allergies No Known Allergies Allergy (Verified 12/20/24 11:30) Medication Reconciliation ropinirole 4 mg tablet,extended release 24 hr 4 mg PO QDAY 02/17/23 [History Confirmed 12/20/24] cetirizine 10 mg tablet (24Hour Allergy) 10 mg PO QDAY PRN allergy symptoms 11/04/24 [History Confirmed 12/20/24] metoprolol tartrate 50 mg tablet 25 mg PO QDAY 11/04/24 [History Confirmed 12/20/24] acetaminophen 500 mg tablet (Acetaminophen Extra Strength) 1,000 mg (2 x 500 mg) PO Q6H PRN pain #90 tabs 11/07/24 [Rx Confirmed 12/20/24] aspirin 81 mg tablet,delayed release 81 mg PO BID #60 tabs 11/07/24 [Rx Confirmed 12/20/24] doxycycline hyclate 100 mg tablet 100 mg PO BID #14 tabs 11/07/24 [Rx Confirmed 12/20/24] gabapentin 300 mg capsule 300 mg PO .qhs #30 caps 11/07/24 [Rx Confirmed 12/20/24] meloxicam 7.5 mg tablet 7.5 mg PO QDAY #30 tabs 11/07/24 [Rx Confirmed 12/20/24] oxycodone 5 mg tablet 5 mg PO Q6H PRN pain #28 tabs 11/07/24 [Rx Confirmed 12/20/24] sennosides 8.6 mg-docusate sodium 50 mg tablet (Senna-S) 1 tab-cap PO QDAY #30 tabs 11/07/24 [Rx Confirmed 12/20/24] cyclobenzaprine 5 mg tablet 5 mg PO TID PRN muscle spasm #60 tabs 11/14/24 [Rx Confirmed 12/20/24] naproxen 500 mg tablet 500 mg PO BID PRN pain #60 tabs 11/14/24 [Rx Confirmed 12/20/24] oxycodone 5 mg tablet 5 mg PO Q6H PRN pain #28 tabs 11/14/24 [Rx Confirmed 12/20/24] acetaminophen 500 mg tablet (Acetaminophen Extra Strength) 1,000 mg (2 x 500 mg) PO Q6H PRN pain #90 tabs 11/30/24 [Rx Confirmed 12/20/24] oxycodone 5 mg tablet 5 mg PO Q6H PRN pain #28 tabs 11/30/24 [Rx Confirmed 12/20/24] Exam Exam Patient is in no acute distress and is cooperative with the examination today. Breathing is nonlabored. Patient has a normal mood and affect. Bilateral extremities were evaluated and demonstrates sensation intact to light touch. Palpable pedal pulses are present. No significant edema is present. Bilateral hips were examined. The patient has no pain with log roll of the hips. Internal rotation to 30 degrees and external rotation to 30 degrees is painless. Negative FADIR. Left knee was examined today. The left knee is in reasonable alignment. Range of motion from 0-120 degrees. Knee is stable to varus and valgus as well as AP translation with <5mm. Patient has a negative McMurrays. There is no pain with patellofemoral compression and no crepitus noted. The knee is nontender to palpation. Right knee incision is clean dry and intact. Rom is 0-105 degrees Assessment and Plan Problem List (1) Osteoarthritis of right knee: Status: Acute Plan: Patient is a 79-year-old male with significant right knee arthritis Status post right total knee replacement. He is doing well. He is doinbg well with outpatient Advanced Care Planning Discussion Advance care planning discussed with:: patient Office Procedures GNS Level of Care Nursing/Assessment Patient Status: Established Patient Nursing Assessment/Reassesment: Medication Reconciliation, Update PMH in EMR and Vital Signs Coordination of Care: Complex Care and Chronic Disease 1-5, Education Complex Pt/Fam, Consent,records obtained, informed consent, Results/Orders obtained and Staff clarify orders Established Patient Charge Established Patient Point Assignment: 95 Established Patient Point Charge: EP Level 3 (80-115) MA Intake Visit Data Collection New Patient or Established: Established Patient (seen at [facility] within 3 years) Reason for Visit:: POST OP TKA Seen by Clinical Staff ONLY (RN/MA): No Verbal consent obtained for Telemed visit?: No Data Modeling Specialist Required: No PCP or OBGYN visit in last 3 months: Yes Hx Now: No Do You Feel Safe at Home: Yes Authorities Contacted: N/A Questionairres Past Medical History Past Medical History Have you ever been diagnosed with any of the following: Neurological Problems Seizures: No Cardiology Problems Heart Murmur: Yes Congestive Heart Failure: No Valvular Heart Disease: Yes Respiratory Problems Chronic Obstructive Pulmonary Disease (COPD): Yes Asthma: Yes Sleep Apnea: Yes Smoking: No Smoking Exposure: No Stomache/Intestinal Problems Hepatitis: No Obesity: Yes Genital/Urinary Problems Renal Disease: No Kidney Stones: Yes Musculoskeletal Problems Arthritis: Yes Osteoporosis: Yes Head,Eye,Nose,Throat Problems Cataracts: Yes (BILATERAL) Deafness: Yes ([facility] has hearing aids at home) Endocrine Problems Diabetes Mellitus Type 1: No Diabetes Mellitus Type 2: No Psychologic Problems Depression: Yes Anxiety: Yes Other Problems Hospitalization: Yes Shingles: No Blood Transfusions: No Blood Transfusion Reaction: No Anesthesia Reactions: No MRSA: No Human Immunodeficiency Virus (HIV): No Chicken Pox: Yes Measles: Yes Mumps: Yes Rubella ([place]bian Measles): No Pertussis: No Clostridium Difficile: No Cancer: No Surgical History Valve Replacement: Yes (TAVR) Subjective Visit Visit for: follow up visit and knee Immunization / Flu Flu Vaccine in the Last 12 Months: No Flu Vaccine Exclusion Criteria: No Exclusion Criteria History of Present Illness Chief complaint: 6 WEEK POST OP John is a pleasant 79-year-old male with severe right knee arthritis. He has done well status post right total knee replacement. He is just using a cane Personal History Occupation: RETIRED Red flag PMH: BMI BMI Counceling provided: Yes Pain Pain level (0-10): 3 Pain duration: 3 WEEKS Pain location: anterior Pain quality: sharp, aching and electric Pain timing: increases with activity (WHILE WALKING ) Associated signs & symptoms: stiffness Ambulatory data Ambulatory device: cane Walking distance (minutes): 1 Treatments Number of previous injections: 0 Improvement with previous injections: No Number of Physical Therapy sessions: 0 Improvement with PT: No Improvement with NSAIDS: no Review of Systems Review of Systems: All systems negative unless otherwise noted in HPI.
[2024-12-20 11:26] VITALS: BP 119/71; PULSE 76; RESP 19; BMI 30.9
== END 2024-12-20 11:42 | disposition home or self-care (01) ==
LOC: HODSRG 10:48
PROVIDERS: PCP Internal Medicine; Referring Provider Internal Medicine; Supervising Provider Orthopaedic Surgery Adult Reconstructive Orthopaedic Surgery; Visit Provider Orthopaedic Surgery Adult Reconstructive Orthopaedic Surgery
DX: M17.11 Unilateral primary osteoarthritis, right knee (principal); Z96.651 Presence of right artificial knee joint; K21.9 Gastro-esophageal reflux disease without esophagitis
CPT/HCPCS: 99213; G0463

== ENCOUNTER 2024-12-23 08:00 | Outpatient (RCR) | payer MEDICARE, BC, SELFPAY ==
--- NOTE | 2024-12-07 11:15 | PT.OIERPT ---
PT OP Initial Eval Patient Information Outpatient Physical Therapy Treatment Date: 12/07/24 Visit Reasons: s/p right TKA Medical Diagnosis: s/p R TKA Treatment Dx #1: Decreased ROM R knee Treatment Dx #2: R knee pain Start of Care: 12/07/24 Date of Onset: 11/07/24 DOS Smoking Status Smoking Status: Never smoker Initial Assessment Subjective: Pt is 79 yr old male s/p R TKA presents ambulating with cane and reports swelling and pain of the knee. Increased pain with bending the knee back. HH therapy went 4x to his home. PLOF: pt was independent with mobility without assistive device prior to onset of knee pain. PMH: heart valve 2023 Pt goal: whatever it takes to get better with the least amount of pain Objective: R knee AROM: ? Flexion: 90 deg ? Extension: -10 deg ? SLR: ? 75 deg with extensor lag ? Strength: ? Quads and hamstrings 4-/5 ? Antalgic gait pattern with decreased WB tolerance on R LE Assessment: Pt presentation consistent with post op R TKA with decreased ROM, strength ? and WB tolerance. Pt lacks 10 degrees of knee extension and flexion is limited by ? myofascial limitations and pain.? Pt requires skilled therapy to improve ROM ? and strength and has good rehab potential.? Eval followed by HEP with printout. Short Term and Relay Mechanic Goals 1. Independent with HEP 2. Improved knee ROM to full extension to 110 deg flexion 3. Improved quad and hamstring strength to 4+/5 4. Improved ambulatory tolerance to community distances with symmetrical ?? gait pattern.??? Treatment Plan 90 day POC ?1. Manual therapy ? 2. Therex ? 3. Modalities as indicated, moist heat, ice, estim Frequency and Duration: 2-3x a week for 18 visits Certification Dates: 12/07/24 to 03/08/25 Procedure Charges OP PT Eval Mod Complex 30 minutes: Yes
--- NOTE | 2024-12-08 13:30 | PT.ODAYNRPT ---
PT Outpatient Daily Note OP Daily Note Outpatient Physical Therapy Treatment Date: 12/08/24 Visit Reasons: s/p right TKA Subjective: Same as time of eval Objective: See F/S for therex MT: PROM into flexion x7' Assessment: Good improvement of knee flexion ROM to 100 deg today Plan: Improve R knee flexion ROM Length of Time (minutes) of Treatment: 30 Minutes Procedure Charges Therapeutic Exercise 30 minutes: Yes
--- NOTE | 2024-12-13 11:36 | PT.ODAYNRPT ---
PT Outpatient Daily Note OP Daily Note Outpatient Physical Therapy Treatment Date: 12/13/24 Visit Reasons: s/p right TKA Subjective: Pt content with how knee is progressing although he still has pain. Objective: Please see flow sheet for ther ex list. Assessment: Pt instructed on heel prop exercise for knee extension, encouraged to perform for HEP. Plan: Assess response to HEP. Length of Time (minutes) of Treatment: 30 Minutes Procedure Charges Therapeutic Exercise 30 minutes: Yes
--- NOTE | 2024-12-15 13:21 | PT.ODAYNRPT ---
PT Outpatient Daily Note OP Daily Note Outpatient Physical Therapy Treatment Date: 12/15/24 Visit Reasons: s/p right TKA Subjective: Pt reports pain at night and swelling of R knee Objective: See F/S for therex MT: PROM into flexion x7' Assessment: Good improvement of knee flexion ROM to 100 deg today Plan: Improve R knee flexion ROM Length of Time (minutes) of Treatment: 30 Minutes Procedure Charges Therapeutic Exercise 30 minutes: Yes
--- NOTE | 2024-12-21 12:19 | PT.ODAYNRPT ---
PT Outpatient Daily Note OP Daily Note Outpatient Physical Therapy Treatment Date: 12/21/24 Visit Reasons: s/p right TKA Subjective: Pt reports pain at night and swelling of R knee Objective: See F/S for therex MT: PROM into flexion x7' Assessment: Good improvement of knee flexion ROM to 106 deg today Plan: Improve R knee flexion ROM Length of Time (minutes) of Treatment: 30 Minutes Procedure Charges Therapeutic Exercise 30 minutes: Yes
--- NOTE | 2024-12-23 08:52 | PT.ODAYNRPT ---
PT Outpatient Daily Note OP Daily Note Outpatient Physical Therapy Treatment Date: 12/23/24 Visit Reasons: s/p right TKA Subjective: pt reports knee is doing better, notices that flexibility is improving. Pt says he is tired today, did not get much sleep. Objective: Please see flow sheet for ther ex list. Assessment: ROM of R knee continues to improve. Plan: Please see flow sheet for ther ex list. Length of Time (minutes) of Treatment: 30 Minutes Procedure Charges Therapeutic Exercise 30 minutes: Yes
== END 2024-12-26 23:59 | disposition home or self-care (01) ==
LOC: CPTX 08:00
PROVIDERS: PCP Orthopaedic Surgery Adult Reconstructive Orthopaedic Surgery; Referring Provider Orthopaedic Surgery Adult Reconstructive Orthopaedic Surgery; Visit Provider Orthopaedic Surgery Adult Reconstructive Orthopaedic Surgery
DX: M25.561 Pain in right knee (principal); R60.9 Edema, unspecified; Z96.651 Presence of right artificial knee joint
CPT/HCPCS: 97110; 97162

== ENCOUNTER 2025-01-26 09:30 | Outpatient (RCR) | payer MEDICARE, BC, SELFPAY ==
--- NOTE | 2024-12-29 12:53 | PT.ODAYNRPT ---
PT Outpatient Daily Note OP Daily Note Outpatient Physical Therapy Treatment Date: 12/29/24 Visit Reasons: s/p right TKA Subjective: Pt reports pain at night and swelling of R knee. Objective: See F/S for therex MT: PROM into flexion x7' Assessment: Good improvement of knee flexion ROM to 110 deg today Plan: Improve R knee flexion ROM Length of Time (minutes) of Treatment: 30 Minutes Procedure Charges Therapeutic Exercise 30 minutes: Yes
--- NOTE | 2025-01-03 10:26 | PT.ODAYNRPT ---
PT Outpatient Daily Note OP Daily Note Outpatient Physical Therapy Treatment Date: 01/03/25 Visit Reasons: s/p right TKA Subjective: Pt reports r knee is moving better, is performing HEP. Objective: Please see flow sheet for ther ex list. Assessment: Pt ROM continues to improve, focus on restoring ROM to normalize gait. Plan: Continue with POC. Length of Time (minutes) of Treatment: 30 Minutes CLARITY DEVELOPER Service Modifier Method I: Divide the number of min of care provided by the CLARITY DEVELOPER/YELENA by the total min of care provided then multiply by 100. If greater than 11 percent modifier is required. Method II: Divide the total time of care provided to patient by 10 (round to the nearest whole number) and add 1 min. to set the minimum time requirement. If treatment total was 60 min., then 10% of 6 min PT CQ modifier applied: CQ Modifier applied Procedure Charges Therapeutic Exercise 30 minutes: Yes
--- NOTE | 2025-01-05 10:59 | PT.ODS1RPT ---
PT OP Progress/Discharge Note Date of Service: 01/05/25 Progress Note/DC Note Progress Note/Discharge Note: Progress Note Patient Information Visit Reasons: s/p right TKA Service Continue Service or Discharge: Continue Service Status Subjective: Pt reports pain at night and swelling of R knee with better ROM. He is doing HEP. Objective: See F/S for therex MT: PROM into flexion x7' R knee ArOM: PROM: Extension: -5 deg full Flexion: 100 deg 110 deg Strength: Quads: 4-/5 HS: 4-/5 Assessment: Pt has attended the eval and 8 Rx sessions with good progress with ROM goals. Pt has improved knee flexion PROM to 110 deg. He is doing HEP and ambulating with a cane. He would benefit from continued therapy to meet strength goals of 4+/5 quads and HS. Plan: Continue per POC to 18 visits if needed Procedure Charges Therapeutic Exercise 30 minutes: Yes
--- NOTE | 2025-01-10 18:56 | PT.ODAYNRPT ---
PT Outpatient Daily Note OP Daily Note Outpatient Physical Therapy Treatment Date: 01/10/25 Visit Reasons: s/p right TKA Subjective: Pt reports pain at night and swelling of R knee. Objective: See F/S for therex Assessment: Good improvement of knee extension ROM to full in standing Plan: Improve R knee ROM Length of Time (minutes) of Treatment: 30 Minutes Procedure Charges Therapeutic Exercise 30 minutes: Yes
--- NOTE | 2025-01-12 15:00 | PT.ODAYNRPT ---
PT Outpatient Daily Note OP Daily Note Outpatient Physical Therapy Treatment Date: 01/12/25 Visit Reasons: s/p right TKA Subjective: Pt reports pain at night and swelling of R knee. Objective: See F/S for therex Assessment: Good improvement of knee extension ROM to full in standing Plan: Improve R knee ROM Length of Time (minutes) of Treatment: 30 Minutes Procedure Charges Therapeutic Exercise 30 minutes: Yes
--- NOTE | 2025-01-17 10:10 | PT.ODAYNRPT ---
PT Outpatient Daily Note OP Daily Note Outpatient Physical Therapy Treatment Date: 01/17/25 Visit Reasons: s/p right TKA Subjective: Pt reports knee is moving better now, is now sleeping in hei bed after 2 months of sleeping on the recliner. Objective: Please see flow sheet for ther ex list. Assessment: Focus on restoring strength and ROm. Plan: Continue with pOC. Length of Time (minutes) of Treatment: 30 Minutes ENVIRONMENTAL CONSERVATION OFFICER Service Modifier Method I: Divide the number of min of care provided by the ENVIRONMENTAL CONSERVATION OFFICER/STAFF ANTISUBMARINE OFFICER by the total min of care provided then multiply by 100. If greater than 11 percent modifier is required. Method II: Divide the total time of care provided to patient by 10 (round to the nearest whole number) and add 1 min. to set the minimum time requirement. If treatment total was 60 min., then 10% of 6 min PT CQ modifier applied: CQ Modifier applied Procedure Charges Therapeutic Exercise 30 minutes: Yes
--- NOTE | 2025-01-20 13:29 | PT.ODAYNRPT ---
PT Outpatient Daily Note OP Daily Note Outpatient Physical Therapy Treatment Date: 01/20/25 Visit Reasons: s/p right TKA Subjective: Pt reports R knee is doing ok, has been busy for 3 days with a painting project so knee has been doing well. Objective: Please see flow sheet for ther ex list. R AROM FLexion 113 deg/ Assessment: pt ROM continues to improve indicated by above measurements. Plan: Continue with poC. Length of Time (minutes) of Treatment: 30 Minutes TRANSPORTATION OPERATIONS MANAGER Service Modifier Method I: Divide the number of min of care provided by the TRANSPORTATION OPERATIONS MANAGER/YELENA by the total min of care provided then multiply by 100. If greater than 11 percent modifier is required. Method II: Divide the total time of care provided to patient by 10 (round to the nearest whole number) and add 1 min. to set the minimum time requirement. If treatment total was 60 min., then 10% of 6 min PT CQ modifier applied: CQ Modifier applied Procedure Charges Therapeutic Exercise 30 minutes: Yes
--- NOTE | 2025-01-26 17:36 | PT.ODAYNRPT ---
PT Outpatient Daily Note OP Daily Note Outpatient Physical Therapy Treatment Date: 01/26/25 Visit Reasons: s/p right TKA Subjective: Pt reports lesspain at night of R knee. Objective: See F/S for therex MT: PROM into flexion x7' Assessment: Good improvement of knee extension ROM to full in standing and PROM into flexion to 112 deg Plan: Improve R knee ROM Length of Time (minutes) of Treatment: 30 Minutes Procedure Charges Therapeutic Exercise 30 minutes: Yes
== END 2025-01-26 23:59 | disposition home or self-care (01) ==
LOC: CPTX 09:30
PROVIDERS: PCP Orthopaedic Surgery Adult Reconstructive Orthopaedic Surgery; Referring Provider Orthopaedic Surgery Adult Reconstructive Orthopaedic Surgery; Visit Provider Orthopaedic Surgery Adult Reconstructive Orthopaedic Surgery
DX: M25.561 Pain in right knee (principal); Z96.651 Presence of right artificial knee joint
CPT/HCPCS: 97110

== ENCOUNTER → 2025-01-30 | Outpatient (CLI) | payer MEDICARE, BC, SELFPAY ==
[2025-01-30 16:06] LABS: Prostate Specific Antigen 0.69 ng/mL (0-4.00)
== END | disposition home or self-care (01) ==
PROVIDERS: PCP Internal Medicine; Referring Provider Surgery; Visit Provider Surgery
DX: N40.1 Benign prostatic hyperplasia with lower urinary tract symptoms (principal)
CPT/HCPCS: 36415; 84153

== ENCOUNTER 2025-02-02 08:30 | Outpatient (RCR) | payer MEDICARE, BC, SELFPAY ==
--- NOTE | 2025-01-31 08:54 | PT.ODAYNRPT ---
PT Outpatient Daily Note OP Daily Note Outpatient Physical Therapy Treatment Date: 01/31/25 Visit Reasons: right TKA Subjective: Pt reports less pain at night of R knee and better strength. Objective: See F/S for therex Assessment: Good improvement of knee extension ROM to full in standing and PROM into flexion to 112 deg Plan: Reassess Length of Time (minutes) of Treatment: 30 Minutes Procedure Charges Therapeutic Exercise 30 minutes: Yes
--- NOTE | 2025-02-02 13:05 | PT.ODS1RPT ---
PT OP Progress/Discharge Note Date of Service: 02/02/25 Progress Note/DC Note Progress Note/Discharge Note: DC Note Patient Information Visit Reasons: right TKA Service Continue Service or Discharge: Discharge Discharge Date: 02/02/25 Status Subjective: Overall better strength and ROM, less pain. He is doing HEP is wants to be done with therapy. Objective: See F/S for therex R knee ArOM: PROM: Extension: full full Flexion: 106 deg 112 deg Strength: Quads: 4+/5 HS: 4+/5 Gait: symmetrical in the community Assessment: Pt has attended the eval and 16 Rx sessions with good progress with ROM goals. Pt has improved knee flexion PROM to 112 deg. He is doing HEP and ambulating without assistive device. He has met strength goals of 4+/5 quads and HS. Plan: D/C with HEP Procedure Charges Therapeutic Exercise 30 minutes: Yes
== END 2025-02-26 23:59 | disposition home or self-care (01) ==
LOC: CPTX 08:30
PROVIDERS: PCP Orthopaedic Surgery Adult Reconstructive Orthopaedic Surgery; Referring Provider Orthopaedic Surgery Adult Reconstructive Orthopaedic Surgery; Visit Provider Orthopaedic Surgery Adult Reconstructive Orthopaedic Surgery
DX: M25.561 Pain in right knee (principal); M25.461 Effusion, right knee; Z96.651 Presence of right artificial knee joint
CPT/HCPCS: 97110

== ENCOUNTER → 2025-02-14 | Outpatient (CLI) | payer MEDICARE, BC, SELFPAY ==
[2025-02-14 16:18] LABS: Ferritin 68 ng/mL (10.5-307.3); Iron 73 mcg/dL (65-175); Total Iron Binding Capacity 344 mcg/dL (250-425)
== END | disposition home or self-care (01) ==
LOC: COPL 14:41
PROVIDERS: PCP Internal Medicine; Referring Provider Psychiatry & Neurology Neurology; Visit Provider Psychiatry & Neurology Neurology
DX: G25.81 Restless legs syndrome (principal); R20.2 Paresthesia of skin
CPT/HCPCS: 36415; 82728; 83540; 83550

== ENCOUNTER 2025-03-23 09:17 | Outpatient (AMB) | payer MEDICARE, BC, SELFPAY ==
[2025-03-23 09:25] VITALS: BP 131/80; PULSE 79; RESP 16; TEMP 36.4; O2SAT 93; BMI 30.6
--- NOTE | 2025-03-23 09:25 | PD.ORTHCLVIS ---
Vital signs 03/23/25 09:25 Height 1.8 m Height Method Measured Weight 99.11 kg Weight Measurement Method Standing Scale BMI 30.6 BP 131/80 H Blood Pressure Source Automatic Cuff Blood Pressure Location Left Upper Arm Position Sitting Respiration 16 Pulse 79 Pulse Source Monitor Temp 97.6 F Temp Source Temporal Artery Scan Pulse Oximetry (%) 93 L Oxygen Delivery Method Room Air Med/Allergies Allergies & Medications Allergies No Known Allergies Allergy (Verified 03/23/25 09:26) Medication Reconciliation ropinirole 4 mg tablet,extended release 24 hr 4 mg PO QDAY 02/17/23 [History Confirmed 03/23/25] cetirizine 10 mg tablet (24Hour Allergy) 10 mg PO QDAY PRN allergy symptoms 11/04/24 [History Confirmed 03/23/25] metoprolol tartrate 50 mg tablet 25 mg PO QDAY 11/04/24 [History Confirmed 03/23/25] acetaminophen 500 mg tablet (Acetaminophen Extra Strength) 1,000 mg (2 x 500 mg) PO Q6H PRN pain #90 tabs 11/07/24 [Rx Confirmed 03/23/25] aspirin 81 mg tablet,delayed release 81 mg PO BID #60 tabs 11/07/24 [Rx Confirmed 03/23/25] doxycycline hyclate 100 mg tablet 100 mg PO BID #14 tabs 11/07/24 [Rx Confirmed 03/23/25] gabapentin 300 mg capsule 300 mg PO .qhs #30 caps 11/07/24 [Rx Confirmed 03/23/25] meloxicam 7.5 mg tablet 7.5 mg PO QDAY #30 tabs 11/07/24 [Rx Confirmed 03/23/25] oxycodone 5 mg tablet 5 mg PO Q6H PRN pain #28 tabs 11/07/24 [Rx Confirmed 03/23/25] sennosides 8.6 mg-docusate sodium 50 mg tablet (Senna-S) 1 tab-cap PO QDAY #30 tabs 11/07/24 [Rx Confirmed 03/23/25] cyclobenzaprine 5 mg tablet 5 mg PO TID PRN muscle spasm #60 tabs 11/14/24 [Rx Confirmed 03/23/25] naproxen 500 mg tablet 500 mg PO BID PRN pain #60 tabs 11/14/24 [Rx Confirmed 03/23/25] oxycodone 5 mg tablet 5 mg PO Q6H PRN pain #28 tabs 11/14/24 [Rx Confirmed 03/23/25] acetaminophen 500 mg tablet (Acetaminophen Extra Strength) 1,000 mg (2 x 500 mg) PO Q6H PRN pain #90 tabs 11/30/24 [Rx Confirmed 03/23/25] oxycodone 5 mg tablet 5 mg PO Q6H PRN pain #28 tabs 11/30/24 [Rx Confirmed 03/23/25] Exam Exam Patient is in no acute distress and is cooperative with the examination today. Breathing is nonlabored. Patient has a normal mood and affect. Bilateral extremities were evaluated and demonstrates sensation intact to light touch. Palpable pedal pulses are present. No significant edema is present. Bilateral hips were examined. The patient has no pain with log roll of the hips. Internal rotation to 30 degrees and external rotation to 30 degrees is painless. Negative FADIR. Left knee was examined today. The left knee is in reasonable alignment. Range of motion from 0-120 degrees. Knee is stable to varus and valgus as well as AP translation with <5mm. Patient has a negative Mc[place]rays. There is no pain with patellofemoral compression and no crepitus noted. The knee is nontender to palpation. Right knee incision is clean dry and intact. Rom is 0-105 degrees Assessment and Plan Problem List (1) Osteoarthritis of right knee: Status: Acute Plan: Patient is a 79-year-old male with significant right knee arthritis Status post right total knee replacement. He is doing well. ASSESSMENT AND PLAN 1. Post-operative status following right total knee arthroplasty: The right knee is reported to be feeling good, and there is no need for a cane for support. Physical therapy was discontinued about 6 weeks ago, and walking is possible without significant pain. Continued monitoring of pain and mobility is advised. Maintain current activity levels and observe for any changes. If pain or mobility issues arise, further evaluation may be necessary. 2. Left knee osteoarthritis: There is [id number] contact in the left knee, but no significant pain is currently experienced. If pain becomes severe or significantly impacts daily activities, scheduling surgery should be considered. Most patients find the second knee surgery easier. Surgery will be postponed to focus on other health appointments and activities. Advanced Care Planning Discussion Advance care planning discussed with:: patient Office Procedures GNS Level of Care Nursing/Assessment Patient Status: Established Patient Nursing Assessment/Reassesment: Medication Reconciliation, Update PMH in EMR and Vital Signs Coordination of Care: Complex Care and Chronic Disease 1-5, Education Complex Pt/Fam, Consent,records obtained, informed consent, Results/Orders obtained and Staff clarify orders Established Patient Charge Established Patient Point Assignment: 95 Established Patient Point Charge: EP Level 3 (80-115) MA Intake Visit Data Collection New Patient or Established: Established Patient (seen at [facility] within 3 years) Reason for Visit:: POST OP TKA Seen by Clinical Staff ONLY (RN/MA): No Verbal consent obtained for Telemed visit?: No Chemical Equipment Repairer Required: No PCP or OBGYN visit in last 3 months: Yes Hx Now: No Do You Feel Safe at Home: Yes Authorities Contacted: N/A Questionairres Past Medical History Past Medical History Have you ever been diagnosed with any of the following: Neurological Problems Seizures: No Cardiology Problems Heart Murmur: Yes Congestive Heart Failure: No Valvular Heart Disease: Yes Respiratory Problems Chronic Obstructive Pulmonary Disease (COPD): Yes Asthma: Yes Sleep Apnea: Yes Smoking: No Smoking Exposure: No Stomache/Intestinal Problems Hepatitis: No Obesity: Yes Genital/Urinary Problems Renal Disease: No Kidney Stones: Yes Musculoskeletal Problems Arthritis: Yes Osteoporosis: Yes Head,Eye,Nose,Throat Problems Cataracts: Yes (BILATERAL) Deafness: Yes ([facility] [place] has hearing aids at home) Endocrine Problems Diabetes Mellitus Type 1: No Diabetes Mellitus Type 2: No Psychologic Problems Depression: Yes Anxiety: Yes Other Problems Hospitalization: Yes Shingles: No Blood Transfusions: No Blood Transfusion Reaction: No Anesthesia Reactions: No MRSA: No Human Immunodeficiency Virus (HIV): No Chicken Pox: Yes Measles: Yes Mumps: Yes Rubella (Prydeinig Measles): No Pertussis: No Clostridium Difficile: No Cancer: No Surgical History Valve Replacement: Yes (TAVR) Subjective Visit Visit for: follow up visit and knee Immunization / Flu Flu Vaccine in the Last 12 Months: No Flu Vaccine Exclusion Criteria: No Exclusion Criteria History of Present Illness Chief complaint: POST OP TKA HISTORY OF PRESENT ILLNESS Dalton Johnston, have obtained verbal consent from the patient, to be recorded during this encounter which may include, but not limited to, medical history, examination, treatment plans, and relevant health information.? Patient was informed that recording will be read and reviewed by myself before inclusion in the medical chart. The patient is an 80-year-old male who had a total knee replacement on the right side on 11/07/2024. He reports a satisfactory condition of his right knee, which he believes no longer requires the use of a cane. He has been able to resume activities such as yard work and walking without significant difficulty. Physical therapy sessions concluded around six weeks ago. He expresses concern about the upcoming surgery on his left knee, questioning its necessity given the absence of pain in that knee. He recalls experiencing pain in his left knee approximately a month ago, particularly when entering his vehicle, but notes that this discomfort has not recurred in the past month. He also mentions that he has been unable to engage in physical activity for nearly four months due to his health issues. PAST SURGICAL HISTORY: Total knee replacement on the right side on 11/07/2024. Personal History Occupation: RETIRED Red flag PMH: BMI BMI Counceling provided: Yes Pain Pain level (0-10): 0 Associated signs & symptoms: none Ambulatory data Ambulatory device: cane Walking distance (minutes): 1 Treatments Number of previous injections: 0 Improvement with previous injections: No Number of Physical Therapy sessions: 0 Improvement with PT: No Improvement with NSAIDS: no Review of Systems Review of Systems: All systems negative unless otherwise noted in HPI.
== END 2025-03-23 09:44 | disposition home or self-care (01) ==
LOC: HODSRG 09:17
PROVIDERS: PCP Internal Medicine; Referring Provider Internal Medicine; Supervising Provider Orthopaedic Surgery Adult Reconstructive Orthopaedic Surgery; Visit Provider Orthopaedic Surgery Adult Reconstructive Orthopaedic Surgery
DX: M17.0 Bilateral primary osteoarthritis of knee (principal); Z96.651 Presence of right artificial knee joint; J44.9 Chronic obstructive pulmonary disease, unspecified; G47.30 Sleep apnea, unspecified; E66.9 Obesity, unspecified; Z71.3 Dietary counseling and surveillance; Z68.30 Body mass index [BMI] 30.0-30.9, adult
CPT/HCPCS: 99213; G0463